=== PATIENT | male | born 1945 | race Caucasian/White ===

== ENCOUNTER 2018-05-04 14:06 | Emergency (ER) | payer OTHER ==
[~2018-05-04] VITALS: Ht 170.2 cm; Wt 89.0 kg
[2018-05-04 14:23] VITALS: BP 153/71
[2018-05-04] MEDS ORDERED: ciprofloxacin 0.3% 2.5ml ophthalmic solution LEFTEYE ONE (14:35)
[2018-05-04] MEDS ORDERED: PROPARACAINE/FLUORESCEIN ophthalmic drops 5ml bottle LEFTEYE ONE (14:35)
[2018-05-04] MEDS ORDERED: proparacaine 0.5% ophthalmic drops 15ml LEFTEYE ONE (14:35)
[2018-05-04] MEDS ORDERED: moxifloxacin 0.5% ophthalmic drops 3ml LEFTEYE ONE (14:45)
== END 2018-05-04 16:01 | disposition home or self-care (01) ==
LOC: ER 14:06
DX: S05.02XA Injury of conjunctiva and corneal abrasion without foreign body, left eye, initial encounter (principal); H44.002 Unspecified purulent endophthalmitis, left eye; E78.00 Pure hypercholesterolemia, unspecified; I10 Essential (primary) hypertension; K21.9 Gastro-esophageal reflux disease without esophagitis; E11.9 Type 2 diabetes mellitus without complications; M19.90 Unspecified osteoarthritis, unspecified site; F17.200 Nicotine dependence, unspecified, uncomplicated; Z98.890 Other specified postprocedural states; Z96.643 Presence of artificial hip joint, bilateral; X58.XXXA Exposure to other specified factors, initial encounter; Y93.89 Activity, other specified; Y92.89 Other specified places as the place of occurrence of the external cause; Y99.9 Unspecified external cause status
CPT/HCPCS: 65222; 99283; 99284

== ENCOUNTER 2018-05-08 09:33 | Emergency (ER) | payer OTHER ==
[~2018-05-08] VITALS: Ht 584.7 cm; Wt 87.5 kg
[2018-05-08 09:50] VITALS: BP 101/73
== END 2018-05-08 11:30 | disposition home or self-care (01) ==
LOC: ER 09:34
DX: H53.8 Other visual disturbances (principal); E78.00 Pure hypercholesterolemia, unspecified; I10 Essential (primary) hypertension; K21.9 Gastro-esophageal reflux disease without esophagitis; E11.9 Type 2 diabetes mellitus without complications; M19.90 Unspecified osteoarthritis, unspecified site; Z98.890 Other specified postprocedural states
CPT/HCPCS: 99281